=== PATIENT | female | born 1960 | race Caucasian/White ===

== ENCOUNTER → 2016-07-02 | Outpatient (CLI) | payer MEDICARE ==
[~2016-07-02] MED LIST: CLARITIN 10MG T10 MG PO; HYDROCHLOROTHIA25 MG PO; IBUPROFEN600 MG PO; NEURONTIN 300300 MG PO; PANTOPRAZOLE SO40 MG PO; PERCOCET 7.5-31 EACH PO; PROVENTIL HFA 61 INH INH; SYMBICORT 160-1 INHA INH; TIZANIDINE HCL4 M1 PO; ZOFRAN8 MG PO
== END ==
LOC: HEART 5 07:30
DX: R07.9 Chest pain, unspecified (principal); R60.9 Edema, unspecified; F17.210 Nicotine dependence, cigarettes, uncomplicated; I10 Essential (primary) hypertension; R94.39 Abnormal result of other cardiovascular function study; I08.1 Rheumatic disorders of both mitral and tricuspid valves; I27.2 Other secondary pulmonary hypertension
CPT/HCPCS: 78452; 93306; A9502; J2785

== ENCOUNTER → 2016-07-12 | Outpatient (CLI) | payer MEDICARE ==
[2016-07-12 11:34] LABS: HEMOGLOBIN 16.2 gm/dl (12.3-15.3); RED BLOOD COUNT 4.79 M/UL (4.00-5.10)
[2016-07-12 11:50] LABS: BUN/CREATININE RATIO 23 (0-10)
== END ==
LOC: OPSV2 10:40
PROVIDERS: Orthopaedic Surgery
DX: Z01.812 Encounter for preprocedural laboratory examination (principal); M75.102 Unspecified rotator cuff tear or rupture of left shoulder, not specified as traumatic
CPT/HCPCS: 36415; 80048; 85027

== ENCOUNTER → 2016-07-16 | Day surgery (SDC) | payer MEDICARE ==
[~2016-07-16] VITALS: Ht 177.8 cm; Wt 100.7 kg
== END | disposition home or self-care (01) ==
LOC: OR 09:54
PROVIDERS: Orthopaedic Surgery
PROC: 0MM24ZZ Reattachment of Left Shoulder Bursa and Ligament, Percutaneous Endoscopic Approach (ICD-10-PCS; principal; 2016-07-16 13:45)
PROC: 0RNK4ZZ Release Left Shoulder Joint, Percutaneous Endoscopic Approach (ICD-10-PCS; 2016-07-16 13:45)
DX: S43.432A Superior glenoid labrum lesion of left shoulder, initial encounter (principal); M75.42 Impingement syndrome of left shoulder; J44.9 Chronic obstructive pulmonary disease, unspecified; J45.909 Unspecified asthma, uncomplicated; K21.9 Gastro-esophageal reflux disease without esophagitis; M19.90 Unspecified osteoarthritis, unspecified site; G43.909 Migraine, unspecified, not intractable, without status migrainosus; G89.29 Other chronic pain; F17.210 Nicotine dependence, cigarettes, uncomplicated; M79.7 Fibromyalgia; Z90.710 Acquired absence of both cervix and uterus; Z90.49 Acquired absence of other specified parts of digestive tract; Z79.51 Long term (current) use of inhaled steroids; Z79.899 Other long term (current) drug therapy; Z87.19 Personal history of other diseases of the digestive system
CPT/HCPCS: C1713; J0690; J2250; J2795; J3010; J7120

== ENCOUNTER → 2020-05-25 | Outpatient (CLI) | payer MEDICARE ==
[~2020-05-25] MED LIST changes: +ACID CONTROL150 MG PO; +ADVAIR 100-501 EACH INH; +ADVIL200 M1 PO; +ATORVASTATIN CA10 MG PO; +ATORVASTATIN CA20 MG PO; +BETAPACE 80MG T80 MG PO; +BREO ELLIPTA 11 EACH INH; +CRESTOR10 MG PO; +DILTIAZEM ER120 M1 PO; +ESCITALOPRAM OX10 MG PO; +IMDUR ER TAB 3030 MG PO; +KLOR-CON 1010 MEQ PO; +LASIX20 MG PO; +LEVOCETIRIZINE D5 MG PO; +LIPITOR TAB 2020 MG PO; +LO-DOSE ASPIRIN81 MG PO; +LOPRESSOR 25 MG25 MG PO; +MUCINEX600 MG PO; +NITROSTAT0.4 MG SL; +NORCO 5-325 TA1 EACH PO; +PREDNISONE 50 M50 MG PO; +VIBRAMYCIN100 MG PO; +VITAMIN D350 MC3 PO; +WELLBUTRIN 75 M75 MG PO; +ZOFRAN4 MG PO
[2020-05-25 11:47] LABS: RED BLOOD COUNT 4.35 M/UL (4.00-5.10); WHITE BLOOD COUNT 10.6 K/UL (4.5-11.0)
[2020-05-25 12:01] LABS: BUN/CREATININE RATIO 10 (0-10)
== END ==
LOC: LAB 10:17
PROVIDERS: Family Medicine
DX: E78.5 Hyperlipidemia, unspecified (principal); K21.9 Gastro-esophageal reflux disease without esophagitis; R79.82 Elevated C-reactive protein (CRP); Z79.899 Other long term (current) drug therapy
CPT/HCPCS: 36415; 80053; 80061; 82607; 83735; 85027; 85652; 86140

== ENCOUNTER → 2020-06-16 | Outpatient (CLI) | payer MEDICARE | LOC: EXRD 13:00 | DX: M79.605 Pain in left leg (principal); I73.9 Peripheral vascular disease, unspecified | CPT/HCPCS: 93922; 93925 ==

== ENCOUNTER → 2020-08-03 | Outpatient (CLI) | payer MEDICARE ==
[2020-08-03 11:38] LABS: HEMOGLOBIN 14.2 gm/dl (12.3-15.3); RED BLOOD COUNT 4.25 M/UL (4.00-5.10)
[2020-08-03 12:06] LABS: BUN/CREATININE RATIO 9 (0-10)
== END ==
LOC: LAB 10:40
PROVIDERS: Internal Medicine Cardiovascular Disease
DX: R94.39 Abnormal result of other cardiovascular function study (principal); I20.9 Angina pectoris, unspecified; E78.5 Hyperlipidemia, unspecified; I10 Essential (primary) hypertension; R00.2 Palpitations
CPT/HCPCS: 71046; 80048; 84439; 84443; 84481; 85025

== ENCOUNTER → 2020-08-05 | Outpatient (CLI) | payer MEDICARE | LOC: CATH 05:38 | DX: I25.118 Atherosclerotic heart disease of native coronary artery with other forms of angina pectoris (principal); I47.1 Supraventricular tachycardia; I73.9 Peripheral vascular disease, unspecified; I10 Essential (primary) hypertension; J44.1 Chronic obstructive pulmonary disease with (acute) exacerbation; E78.5 Hyperlipidemia, unspecified; F17.210 Nicotine dependence, cigarettes, uncomplicated; E78.00 Pure hypercholesterolemia, unspecified; K21.9 Gastro-esophageal reflux disease without esophagitis; Z79.82 Long term (current) use of aspirin; Z82.49 Family history of ischemic heart disease and other diseases of the circulatory system; Z72.89 Other problems related to lifestyle; Z20.822 Contact with and (suspected) exposure to COVID-19; Z79.899 Other long term (current) drug therapy | CPT/HCPCS: 99152; 99153; C1769; C1894; J1644; J2250; J3010; J7030; Q9967 ==

== ENCOUNTER 2020-08-08 16:42 | Emergency (ER) | payer MEDICARE | END 2020-08-08 18:23 | disposition left against medical advice (07) | LOC: ER1 16:42 | DX: Z53.21 Procedure and treatment not carried out due to patient leaving prior to being seen by health care provider (principal) | CPT/HCPCS: 93005 ==

== ENCOUNTER 2020-12-05 09:33 | Emergency (ER) | payer MEDICARE ==
[2020-12-05] MEDS ORDERED: ULTRA-LIGHT RO1 EACH MC (14:53)
[2020-12-05] MEDS ORDERED: HYDROCODON-ACE1 EAC4 PO (14:53)
[2020-12-05] MEDS ORDERED: CYCLOBENZAPRINE5 MG PO (14:53)
[2020-12-05] MEDS ORDERED: IBUPROFEN600 MG PO (14:53)
== END 2020-12-05 15:14 | disposition home or self-care (01) ==
LOC: ER1 09:33
DX: M54.41 Lumbago with sciatica, right side (principal); J44.9 Chronic obstructive pulmonary disease, unspecified; F17.200 Nicotine dependence, unspecified, uncomplicated
CPT/HCPCS: 71045; 72131; 72192; 73502; 96372; 99284; J1100; J1885

== ENCOUNTER → 2021-01-04 | Outpatient (CLI) | payer MEDICARE ==
[~2021-01-04] MED LIST changes: +CYCLOBENZAPRINE5 MG PO; +HYDROCODON-ACE1 EAC4 PO; +ULTRA-LIGHT RO1 EACH MC
[2021-01-04 07:17] LABS: HEMOGLOBIN 12.8 gm/dl (12.3-15.3); RED BLOOD COUNT 3.71 M/UL (4.00-5.10); WHITE BLOOD COUNT 8.3 K/UL (4.5-11.0)
[2021-01-04 07:37] LABS: BUN/CREATININE RATIO 23 (0-10)
== END ==
LOC: LAB 06:40
PROVIDERS: Family Medicine
DX: M16.11 Unilateral primary osteoarthritis, right hip (principal); M25.551 Pain in right hip; I10 Essential (primary) hypertension; E78.5 Hyperlipidemia, unspecified; E55.9 Vitamin D deficiency, unspecified; K21.9 Gastro-esophageal reflux disease without esophagitis; Z79.899 Other long term (current) drug therapy; S32.511A Fracture of superior rim of right pubis, initial encounter for closed fracture; S32.591A Other specified fracture of right pubis, initial encounter for closed fracture
CPT/HCPCS: 36415; 73502; 80053; 80061; 82607; 83735; 85027

== ENCOUNTER → 2021-10-10 | Outpatient (CLI) | payer MEDICARE | LOC: MAMO 09:00 | DX: Z12.31 Encounter for screening mammogram for malignant neoplasm of breast (principal); R92.8 Other abnormal and inconclusive findings on diagnostic imaging of breast; Z90.710 Acquired absence of both cervix and uterus | CPT/HCPCS: 76641; 77063; 77067 ==

== ENCOUNTER → 2021-11-06 | Outpatient (CLI) | payer MEDICARE | LOC: HEART 5 09:30 | DX: R06.02 Shortness of breath (principal); I27.20 Pulmonary hypertension, unspecified; J90 Pleural effusion, not elsewhere classified; I08.3 Combined rheumatic disorders of mitral, aortic and tricuspid valves | CPT/HCPCS: 93306 ==